=== PATIENT | female | born 1990 | race Caucasian/White ===

== ENCOUNTER 2021-01-14 16:41 | Inpatient (IN) | payer OTHER ==
[~2021-01-14] VITALS: Ht 167.6 cm; Wt 85.5 kg
[2021-01-14] MEDS ORDERED: CALCIUM CARBONATE 500 MG TAB.CHEW PO PRN (17:00)
[2021-01-14] MEDS ORDERED: MISOPROSTOL 25 MCG TABLET VG PRN (17:00)
[2021-01-14] MEDS ORDERED: OXYTOCIN 30U/ 0.9% NaCL 500ML 500 ML IV ONE (17:00)
[2021-01-14] MEDS ORDERED: TERBUTALINE 1 MG/ML, 1ML SQ PRN (17:00)
[2021-01-14] MEDS ORDERED: TERBUTALINE 1 MG/ML, 1ML IVPush PRN (17:00)
[2021-01-14] MEDS ORDERED: PLEASE ENTER ALLERGIES MC SCH (17:00)
[2021-01-14] MEDS ORDERED: ONDANSETRON 2MG/ML, 2ML IVPush PRN (17:00)
[2021-01-14] MEDS ORDERED: FENTANYL PF 100 MCG/2ML IV PRN (17:00)
[2021-01-14] MEDS ORDERED: OXYTOCIN 30U/ 0.9% NaCL 500ML 500 ML ONE ×2 (17:08→23:04)
[2021-01-14] MEDS ORDERED: MISOPROSTOL 25 MCG TABLET ONE (17:08)
[2021-01-14 17:09] VITALS: BP 134/92
[2021-01-14 17:13] LABS: BASOPHILS % (AUTO) 0 % (0-1); EOSINOPHILS % (AUTO) 0 % (1-7); LYMPHOCYTES % (AUTO) 12 % (22-44); MEAN CORPUSCULAR HEMOGLOBIN 26.8 pg (27.0-34.8); MEAN PLATELET VOLUME 8.7 fL (7.4-10.4); MONOCYTES % (AUTO) 9 % (2-9); NEUTROPHILS % (AUTO) 79 % (42-75); PLATELET COUNT 200 x10^3/uL (130-400); RED BLOOD COUNT 4.25 x10^6/uL (3.82-5.3); RED CELL DISTRIBUTION WIDTH 14.9 % (9.6-15.2)
[2021-01-14 17:15] LABS: MD NO
[2021-01-14 17:25] LABS: ALANINE AMINOTRANSFERASE 22 U/L (12-78); ALBUMIN 2.8 g/dL (3.4-5.0); ANION GAP 9 mmol/L (5-15); CALCIUM 9.3 mg/dL (8.5-10.1); CHLORIDE 109 mmol/L (98-107)
[2021-01-14 17:28] LABS: ALKALINE PHOSPHATASE 143 U/L (45-117); BILIRUBIN,TOTAL 0.2 mg/dL (0.2-1.0); TOTAL PROTEIN 6.5 g/dL (6.4-8.2)
[2021-01-14] MEDS ORDERED: PLEASE ENTER HEIGHT AND WEIGHT MC SCH (17:30)
[2021-01-14 17:49] LABS: MICROSCOPIC NOT IND
[2021-01-14] MEDS: PLEASE ENTER ALLERGIES MC SCH (18:00)
[2021-01-14 18:02] LABS: CREATININE,URINE RANDOM 36.7 mg/dL
[2021-01-14 20:11] VITALS: BP 127/75
[2021-01-14] MEDS ORDERED: OXYTOCIN 30U/ 0.9% NaCL 500ML 500 ML IV PRN (23:00)
[2021-01-15] MEDS: D5%-LACTATED RINGERS 1,000 ML IV SCH ×4 (01:00→17:00)
[2021-01-15] MEDS: LACTATED RINGERS 1,000 ML IV SCH ×5 (01:00→17:00)
[2021-01-15] MEDS: PLEASE ENTER ALLERGIES MC SCH (02:00)
[2021-01-15] MEDS: FENTANYL PF 100 MCG/2ML IVPush PRN ×2 (03:14→07:15)
[2021-01-15] MEDS ORDERED: FENTANYL/BUPIV./NS/PF 250 ML EPIDCONT ONE (15:56)
[2021-01-15] MEDS ORDERED: FENTANYL/BUPIV./NS/PF 250 ML EPIDCONT SCH (17:00)
[2021-01-15] MEDS ORDERED: NALOXONE 0.4 MG/ML, 1ML IVPush PRN (17:00)
[2021-01-15] MEDS ORDERED: EPHEDRINE 50 MG/ML, 1ML IVPush PRN (17:00)
[2021-01-15] MEDS ORDERED: LACTATED RINGERS 1,000 ML IVBOLUS PRN (17:00)
[2021-01-15] MEDS ORDERED: SIMETHICONE 80 MG CHEW TAB PO PRN (22:00)
[2021-01-15] MEDS ORDERED: ONDANSETRON 2MG/ML, 2ML IV PRN (22:00)
[2021-01-15] MEDS ORDERED: MISOPROSTOL 200 MCG TABLET PR PRN (22:00)
[2021-01-15] MEDS ORDERED: ACETAMINOPHEN 325 MG TABLET PO PRN (22:00)
[2021-01-15] MEDS ORDERED: OXYcodone/APAP 5/325MG TABLET PO PRN ×2 (22:00)
[2021-01-15] MEDS: OXYTOCIN 30U/ 0.9% NaCL 500ML 500 ML IV SCH (22:00)
[2021-01-15 23:55] VITALS: BP 120/75
[2021-01-16] MEDS: IBUPROFEN 800 MG TABLET PO PRN ×3 (00:20→18:36)
[2021-01-16] MEDS: LACTATED RINGERS 1,000 ML IV SCH (01:00)
[2021-01-16 04:15] VITALS: BP 108/75
[2021-01-16 05:16] LABS: BASOPHILS % (AUTO) 0 % (0-1); EOSINOPHILS % (AUTO) 0 % (1-7); LYMPHOCYTES % (AUTO) 8 % (22-44); MEAN CORPUSCULAR HEMOGLOBIN 26.6 pg (27.0-34.8); MEAN CORPUSCULAR HGB CONC 32.6 g/dL (32.4-35.8); MEAN PLATELET VOLUME 8.8 fL (7.4-10.4); MONOCYTES % (AUTO) 8 % (2-9); NEUTROPHILS % (AUTO) 84 % (42-75); PLATELET COUNT 170 x10^3/uL (130-400); RED BLOOD COUNT 3.84 x10^6/uL (3.82-5.3); RED CELL DISTRIBUTION WIDTH 14.7 % (9.6-15.2)
[2021-01-16 05:20] LABS: MD NO
[2021-01-16] MEDS: OXYTOCIN 30U/ 0.9% NaCL 500ML 500 ML IV SCH ×2 (08:00→18:00)
[2021-01-16 08:10] VITALS: BP 110/72
[2021-01-16] MEDS: DOCUSATE 100 MG CAPSULE PO PRN (08:58)
[2021-01-16] MEDS: PRENATAL VIT/IRON/FA 1 EACH TABLET PO SCH (08:58)
[2021-01-16 14:00] VITALS: BP 108/73
[2021-01-16 16:45] VITALS: BP 117/77
[2021-01-16 19:39] VITALS: BP 119/79
[2021-01-17] MEDS: OXYTOCIN 30U/ 0.9% NaCL 500ML 500 ML IV SCH (04:00)
[2021-01-17] MEDS: IBUPROFEN 800 MG TABLET PO PRN (05:15)
[2021-01-17] MEDS ORDERED: IBUP-1222 PO (07:39)
[2021-01-17 07:40] VITALS: BP 120/76
[2021-01-17] MEDS: PRENATAL VIT/IRON/FA 1 EACH TABLET PO SCH (09:10)
[2021-01-17] MEDS: DOCUSATE 100 MG CAPSULE PO PRN (09:10)
== END 2021-01-17 11:35 | disposition home or self-care (01) | DRG 807 ==
LOC: LDIP 16:41 → 2NW 01-15 23:30
PROVIDERS: ADMIT Obstetrics & Gynecology; ATTEND Obstetrics & Gynecology
PROC: 10E0XZZ Delivery of Products of Conception, External Approach (ICD-10-PCS; principal; 2021-01-15)
PROC: 3E0R3BZ Introduction of Anesthetic Agent into Spinal Canal, Percutaneous Approach (ICD-10-PCS; 2021-01-15)
PROC: 00HU33Z Insertion of Infusion Device into Spinal Canal, Percutaneous Approach (ICD-10-PCS; 2021-01-15)
PROC: 3E033VJ Introduction of Other Hormone into Peripheral Vein, Percutaneous Approach (ICD-10-PCS; 2021-01-15)
PROC: 0HQ9XZZ Repair Perineum Skin, External Approach (ICD-10-PCS; 2021-01-15)
PROC: 3E0P7VZ Introduction of Hormone into Female Reproductive, Via Natural or Artificial Opening (ICD-10-PCS; 2021-01-15)
DX: O13.4 Gestational [pregnancy-induced] hypertension without significant proteinuria, complicating childbirth (principal); Z37.0 Single live birth; O69.81X0 Labor and delivery complicated by cord around neck, without compression, not applicable or unspecified; Z3A.40 40 weeks gestation of pregnancy; O70.0 First degree perineal laceration during delivery; Z20.822 Contact with and (suspected) exposure to COVID-19
CPT/HCPCS: 36415; J7121; 80053; 81003; 82570; 84156; 84550; 85025; 86592; 86850; 86900; 87635; G0378; J3010; J2590; J7120

== ENCOUNTER → 2021-04-02 | Outpatient (CLI) | payer OTHER ==
[~2021-04-02] MED LIST: IBUP-1222 PO
== END | disposition home or self-care (01) ==
LOC: CFH 13:18
PROVIDERS: ATTEND Internal Medicine
DX: N63.31 Unspecified lump in axillary tail of the right breast (principal)
CPT/HCPCS: 76642; 77062; 77066; G0279